=== PATIENT | male | born 1950 | race Caucasian/White ===

== ENCOUNTER 2024-01-23 04:08 | Inpatient (IN) | payer OTHER ==
[~2024-01-23] VITALS: Ht 177.8 cm; Wt 284.9 kg
[2024-01-23] VITALS (11 sets, daily range): BP systolic 119–178; BP diastolic 60–97; PULSE 78–99; RESP 18–22; TEMP 98–98.7; O2SAT 85–96
[2024-01-23] MEDS: FUROSEMIDE 40 MG/4 ML VIAL IV ONE (05:09)
[2024-01-23 05:46] LABS: Basophils # (auto) 0.1 10 ^3/uL (0-0.2); Basophils % (auto) 0.6 % (0.0-2.0); Eosinophils # (auto) 0 10 ^3/uL (0-0.8); Eosinophils % (auto) 0.3 % (0.0-7.0); Hematocrit 44.1 % (41.0-53.0); Hemoglobin 14.7 g/dL (13.5-17.5); Lymphocytes # (auto) 0.7 10 ^3/uL (0.4-5.4); Lymphocytes % (auto) 6.9 % (10.0-50.0); Mean Corpuscular Hemoglobin 27.9 pg (28.0-32.0); Mean Corpuscular Hgb Conc. 33.3 g/dL (32.0-36.0); Mean Corpuscular Volume 83.8 fL (80.0-100.0); Monocytes # (auto) 0.7 10 ^3/uL (0-1.3); Monocytes % (auto) 6.3 % (0.0-12.0); Neutrophils % (auto) 85.9 % (37.0-80.0); Nucleated Red Blood Cells % 0.2 %; Platelet Count (auto) 295 10^3/uL (140-450); Red Blood Cells 5.27 10^6/uL (4.5-5.90); Red Cell Distribution Width 16.5 % (11.8-14.3); White Blood Cell 10.5 10^3/uL (4.4-10.8)
[2024-01-23 05:56] LABS: Chloride 107 mmol/L (98-107); Potassium 4.3 mmol/L (3.5-5.1); Sodium 138 mmol/L (136-145)
[2024-01-23 05:57] LABS: Anion Gap 5 (5-15); Calcium 9.7 mg/dL (8.7-10.4); Carbon Dioxide 26 mmol/L (20-30)
[2024-01-23 06:02] LABS: BUN/Creatinine Ratio 12.9 (10.0-20.0); Blood Urea Nitrogen 16 mg/dL (9-23); Glucose 212 mg/dL (74-106)
[2024-01-23 09:32] LABS: Base Excess 0.3 mmol/L (-2.0-3.0)
[2024-01-23] MEDS ORDERED: NITROGLYCERIN 0.4 MG SL TAB SL PRN (10:30)
[2024-01-23] MEDS: AZITHROMYCIN 500MG/ 250ML 250 ML IV ONE (10:30)
[2024-01-23] MEDS ORDERED: DEXTROSE (50%) 50ML SYRG IV PRN (10:30)
[2024-01-23] MEDS: cefTRIAXone 1GM/50ML D5W 50 ML IV ONE (10:30)
[2024-01-23] MEDS ORDERED: FUROSEMIDE 20 MG/2 ML VIAL IV SCH (11:15)
[2024-01-23] MEDS: ENOXAPARIN SOD 150 MG/1 ML SYRINGE SC SCH (11:33)
[2024-01-23 11:36] LABS: INR 1.03 (0.9-1.15); Prothrombin Time 10.9 sec (9.3-11.8)
[2024-01-23] MEDS: ACCU-CHEK COMFORT CURVE STRIP VI SCH (11:38)
[2024-01-23] MEDS: InsuLIN REG 1unit/0.01ml Soln (100units/ml) SC SCH ×2 (11:38→21:27)
[2024-01-23] MEDS: ENOXAPARIN SOD 40 MG/0.4 ML SYRINGE SC ONE (14:28)
[2024-01-23] MEDS: hydrALAZINE HCL 20 MG/ML VL IV ONE (14:29)
[2024-01-23] MEDS: FUROSEMIDE 20 MG/2 ML VIAL IV SCH (18:34)
[2024-01-23] MEDS ORDERED: ALBUAER3 IN (19:11)
[2024-01-23] MEDS: METOPROLOL TARTRATE 25 MG TAB PO SCH (21:29)
[2024-01-23] MEDS: ATORVASTATIN 20 MG TAB PO SCH (21:29)
[2024-01-24] VITALS (10 sets, daily range): BP systolic 140–170; BP diastolic 58–80; PULSE 70–115; RESP 19–21; TEMP 97.7–98.8; O2SAT 90–97
[2024-01-24 06:31] LABS: Basophils # (auto) 0 10 ^3/uL (0-0.2); Basophils % (auto) 0.5 % (0.0-2.0); Eosinophils # (auto) 0.1 10 ^3/uL (0-0.8); Eosinophils % (auto) 1.6 % (0.0-7.0); Hematocrit 43.2 % (41.0-53.0); Hemoglobin 14.2 g/dL (13.5-17.5); Lymphocytes # (auto) 0.8 10 ^3/uL (0.4-5.4); Lymphocytes % (auto) 9.4 % (10.0-50.0); Mean Corpuscular Hemoglobin 27.3 pg (28.0-32.0); Mean Corpuscular Hgb Conc. 32.9 g/dL (32.0-36.0); Mean Corpuscular Volume 83.1 fL (80.0-100.0); Monocytes # (auto) 0.6 10 ^3/uL (0-1.3); Monocytes % (auto) 7.6 % (0.0-12.0); Neutrophils # (auto) 6.5 10 ^3/uL (1.6-8.6); Neutrophils % (auto) 80.9 % (37.0-80.0); Nucleated Red Blood Cells % 0.2 %; Platelet Count (auto) 293 10^3/uL (140-450); Red Cell Distribution Width 16.5 % (11.8-14.3)
[2024-01-24 06:49] LABS: Alkaline Phosphatase 90 U/L (46-116); Anion Gap 6 (5-15); Aspartate Aminotransferase 10 U/L (13-40); BUN/Creatinine Ratio 13.8 (10.0-20.0); Blood Urea Nitrogen 19 mg/dL (9-23); Calcium 9.7 mg/dL (8.7-10.4); Carbon Dioxide 29 mmol/L (20-30); Chloride 105 mmol/L (98-107); Glucose 144 mg/dL (74-106); LDL Cholesterol 69 mg/dL (< 100); Potassium 4.1 mmol/L (3.5-5.1); Sodium 140 mmol/L (136-145); Triglycerides 158 mg/dL (< 150)
[2024-01-24 06:50] LABS: Albumin 3.8 g/dL (3.2-4.8); Bilirubin, Total 0.9 mg/dL (0.2-1.0); Cholesterol 127 mg/dL (< 200); HDL Cholesterol 30 mg/dL (40-59); Total Protein 6.7 g/dL (5.7-8.2)
[2024-01-24] MEDS ORDERED: LIRA18IN2 SUBCUT (06:56)
[2024-01-24] MEDS ORDERED: FINA5TAB4 PO (06:56)
[2024-01-24] MEDS ORDERED: FLUT0.05 NAS (06:56)
[2024-01-24] MEDS ORDERED: PIO30T GT (06:56)
[2024-01-24] MEDS ORDERED: FENO145T27 OR (06:56)
[2024-01-24] MEDS ORDERED: AMLO1TAB22 PO (06:56)
[2024-01-24] MEDS ORDERED: LOSA-534 PO (06:56)
[2024-01-24] MEDS ORDERED: ATEN50TA PO (06:56)
[2024-01-24] MEDS ORDERED: METF-370 PO (06:56)
[2024-01-24] MEDS ORDERED: TAMS0.4C39 PO (06:56)
[2024-01-24] MEDS ORDERED: FAMO-12 PO (06:56)
[2024-01-24] MEDS ORDERED: TRIA0.5C TOP (06:56)
[2024-01-24] MEDS ORDERED: ATOR20TA50 PO (06:56)
[2024-01-24] MEDS ORDERED: TRAM50TA2 PO (06:56)
[2024-01-24 06:59] LABS: Alanine Aminotransferase < 9 U/L (7-40)
[2024-01-24] MEDS: LISINOPRIL 20 MG TAB PO SCH (08:35)
[2024-01-24] MEDS: cefTRIAXone 1GM/50ML D5W 50 ML IV SCH (08:36)
[2024-01-24] MEDS: hydrALAZINE HCL 20 MG/ML VL IV PRN (08:36)
[2024-01-24] MEDS: ENOXAPARIN SOD 40 MG/0.4 ML SYRINGE SC SCH ×2 (08:48→21:12)
[2024-01-24] MEDS: AZITHROMYCIN 500MG/ 250ML 250 ML IV SCH (10:28)
[2024-01-24] MEDS: EMPAGLIFLOZIN 10 MG TAB PO SCH (10:28)
[2024-01-24] MEDS ORDERED: TAMSULOSIN HYDROCHLORIDE 0.4 MG CAP PO ONE (10:45)
[2024-01-24] MEDS ORDERED: LISINOPRIL 20 MG TAB PO ONE (11:15)
[2024-01-24] MEDS: FINASTERIDE 5 MG TAB PO ONE (11:43)
[2024-01-24] MEDS: TAMSULOSIN HYDROCHLORIDE 0.4 MG CAP PO SCH (17:49)
[2024-01-24] MEDS: METOPROLOL TARTRATE 25 MG TAB PO SCH (21:11)
[2024-01-24] MEDS ORDERED: DEXTROSE (50%) 50ML SYRG IV PRN (21:15)
[2024-01-24] MEDS: ENOXAPARIN SOD 30 MG/0.3 ML SYRINGE SC SCH (22:00)
[2024-01-24] MEDS: InsuLIN REG 1unit/0.01ml Soln (100units/ml) SC SCH (22:52)
[2024-01-24] MEDS: ACCU-CHEK COMFORT CURVE STRIP VI SCH (22:53)
[2024-01-25] VITALS (8 sets, daily range): BP systolic 124–151; BP diastolic 55–77; PULSE 77–97; RESP 18–24; TEMP 98.3–98.9; O2SAT 91–95
[2024-01-25 06:13] LABS: Basophils # (auto) 0 10 ^3/uL (0-0.2); Basophils % (auto) 0.3 % (0.0-2.0); Eosinophils # (auto) 0 10 ^3/uL (0-0.8); Eosinophils % (auto) 0.2 % (0.0-7.0); Hematocrit 43.9 % (41.0-53.0); Hemoglobin 14.4 g/dL (13.5-17.5); Lymphocytes # (auto) 0.9 10 ^3/uL (0.4-5.4); Lymphocytes % (auto) 7.3 % (10.0-50.0); Mean Corpuscular Hemoglobin 27.2 pg (28.0-32.0); Mean Corpuscular Hgb Conc. 32.7 g/dL (32.0-36.0); Monocytes # (auto) 1.1 10 ^3/uL (0-1.3); Monocytes % (auto) 8.6 % (0.0-12.0); Neutrophils # (auto) 10.3 10 ^3/uL (1.6-8.6); Neutrophils % (auto) 83.6 % (37.0-80.0); Platelet Count (auto) 323 10^3/uL (140-450); Red Blood Cells 5.29 10^6/uL (4.5-5.90); Red Cell Distribution Width 16.8 % (11.8-14.3); White Blood Cell 12.3 10^3/uL (4.4-10.8)
[2024-01-25 06:24] LABS: Anion Gap 10 (5-15); Carbon Dioxide 27 mmol/L (20-30); Chloride 104 mmol/L (98-107); Potassium 3.5 mmol/L (3.5-5.1); Sodium 141 mmol/L (136-145)
[2024-01-25 06:25] LABS: Calcium 9.8 mg/dL (8.7-10.4)
[2024-01-25 06:30] LABS: BUN/Creatinine Ratio 15.5 (10.0-20.0); Blood Urea Nitrogen 25 mg/dL (9-23); Glucose 134 mg/dL (74-106); Magnesium 2.1 mg/dL (1.6-2.6)
[2024-01-25] MEDS: LISINOPRIL 20 MG TAB PO SCH (09:13)
[2024-01-25] MEDS: FINASTERIDE 5 MG TAB PO SCH (09:13)
[2024-01-25 14:28] LABS: Urine Bacteria FEW /hpf (None Seen); Urine Blood 3+ /uL (Negative); Urine Budding Yeast MANY /hpf (None Seen); Urine Clarity Turbid (Clear); Urine Color Brown (Yellow); Urine Mucus FEW (None Seen); Urine Protein, UAD 2+ (Negative); Urine Urobilinogen Normal (Negative); Urine WBC 40 /hpf (0 - 3); Urine pH 5.5 (5.0-9.0)
[2024-01-25] MEDS: metOLazone 5 MG TAB PO ONE (17:02)
[2024-01-25] MEDS: TAMSULOSIN HYDROCHLORIDE 0.4 MG CAP PO SCH (18:03)
[2024-01-26] VITALS (8 sets, daily range): BP systolic 100–130; BP diastolic 50–63; PULSE 17–98; RESP 18–20; TEMP 97.8–98.5; O2SAT 92–97
[2024-01-26 06:09] LABS: Basophils # (auto) 0 10 ^3/uL (0-0.2); Basophils % (auto) 0.4 % (0.0-2.0); Eosinophils # (auto) 0.3 10 ^3/uL (0-0.8); Eosinophils % (auto) 3.1 % (0.0-7.0); Hematocrit 43.1 % (41.0-53.0); Hemoglobin 14.3 g/dL (13.5-17.5); Lymphocytes # (auto) 0.9 10 ^3/uL (0.4-5.4); Lymphocytes % (auto) 8.8 % (10.0-50.0); Mean Corpuscular Hemoglobin 27.6 pg (28.0-32.0); Mean Corpuscular Hgb Conc. 33.1 g/dL (32.0-36.0); Mean Corpuscular Volume 83.2 fL (80.0-100.0); Monocytes % (auto) 8.9 % (0.0-12.0); Neutrophils # (auto) 8.4 10 ^3/uL (1.6-8.6); Neutrophils % (auto) 78.8 % (37.0-80.0); Platelet Count (auto) 314 10^3/uL (140-450); Red Blood Cells 5.18 10^6/uL (4.5-5.90); Red Cell Distribution Width 16.9 % (11.8-14.3); White Blood Cell 10.7 10^3/uL (4.4-10.8)
[2024-01-26 06:21] LABS: Anion Gap 10 (5-15); Carbon Dioxide 30 mmol/L (20-30); Chloride 102 mmol/L (98-107); Potassium 3.1 mmol/L (3.5-5.1); Sodium 142 mmol/L (136-145)
[2024-01-26 06:23] LABS: Calcium 9.4 mg/dL (8.7-10.4)
[2024-01-26 06:28] LABS: Blood Urea Nitrogen 27 mg/dL (9-23); Glucose 133 mg/dL (74-106)
[2024-01-26] MEDS: metOLazone 5 MG TAB PO ONE (16:01)
[2024-01-26] MEDS: POTASSIUM CHL 20 Meq TABLET PO ONE (18:28)
[2024-01-27 01:00] VITALS: BP 143/72; PULSE 84; RESP 17; TEMP 97.7; O2SAT 95
[2024-01-27 05:02] VITALS: BP 111/59; PULSE 84; RESP 17; TEMP 97.7; O2SAT 91
[2024-01-27 08:00] VITALS: PULSE 91; O2SAT 92
[2024-01-27 08:36] LABS: Anion Gap 6 (5-15); Calcium 10.2 mg/dL (8.7-10.4); Carbon Dioxide 35 mmol/L (20-30); Chloride 99 mmol/L (98-107); Sodium 140 mmol/L (136-145)
[2024-01-27 08:42] LABS: BUN/Creatinine Ratio 20.3 (10.0-20.0); Glucose 137 mg/dL (74-106)
[2024-01-27 08:43] LABS: Blood Urea Nitrogen 42 mg/dL (9-23); Magnesium 2.6 mg/dL (1.6-2.6)
[2024-01-27 09:00] VITALS: BP 131/70; PULSE 99; RESP 18; TEMP 98.1; O2SAT 96
[2024-01-27] MEDS: metOLazone 5 MG TAB PO ONE (10:24)
[2024-01-27 13:22] LABS: Base Excess 6.4 mmol/L (-2.0-3.0)
[2024-01-27 13:30] VITALS: BP 117/55; PULSE 96; RESP 20; TEMP 98.1; O2SAT 93
[2024-01-27] MEDS ORDERED: CEPH250C PO (14:58)
[2024-01-27] MEDS ORDERED: FURO40TA4 PO (14:58)
[2024-01-27] MEDS ORDERED: TAMS0.4C39 PO (14:58)
[2024-01-27] MEDS ORDERED: POTA-36 PO (14:59)
[2024-01-27] MEDS: ACETAMINOPHEN 325 MG TAB PO ONE (15:25)
[2024-01-27 15:30] VITALS: BP 117/55; PULSE 96
[2024-01-28 13:07] LABS: PSA Free 0.5 ng/mL; Prostate Specific Antigen 4.2 ng/mL (0.0-4.0)
== END 2024-01-27 18:05 | disposition home or self-care (01) | DRG 177 ==
LOC: ER 04:08 → TELE 10:31 → TELE-WESTW 12:00
PROVIDERS: ADMIT Internal Medicine; ATTEND Internal Medicine
PROC: 5A09357 Assistance with Respiratory Ventilation, Less than 24 Consecutive Hours, Continuous Positive Airway Pressure (ICD-10-PCS; principal; 2024-01-23)
DX: J15.69 Pneumonia due to other Gram-negative bacteria (principal); I50.31 Acute diastolic (congestive) heart failure; J96.01 Acute respiratory failure with hypoxia; R65.11 Systemic inflammatory response syndrome (SIRS) of non-infectious origin with acute organ dysfunction; N17.0 Acute kidney failure with tubular necrosis; I13.0 Hypertensive heart and chronic kidney disease with heart failure and stage 1 through stage 4 chronic kidney disease, or unspecified chronic kidney disease; R18.8 Other ascites; J15.9 Unspecified bacterial pneumonia; E78.5 Hyperlipidemia, unspecified; E66.01 Morbid (severe) obesity due to excess calories; I16.0 Hypertensive urgency; G47.33 Obstructive sleep apnea (adult) (pediatric); N40.1 Benign prostatic hyperplasia with lower urinary tract symptoms; R33.8 Other retention of urine; R31.0 Gross hematuria; E11.22 Type 2 diabetes mellitus with diabetic chronic kidney disease; N18.9 Chronic kidney disease, unspecified; I27.20 Pulmonary hypertension, unspecified; Z79.4 Long term (current) use of insulin; Z68.39 Body mass index [BMI] 39.0-39.9, adult
CPT/HCPCS: 36415; 36600; 71045; 76705; 76775; 80048; 80053; 80061; 81001; 82805; 82962; 83036; 83735; 83880; 84154; 84443; 84484; 85025; 85610; 87086; 87088; 87186; 93005; 93306; 94660; 96365; 96368; 96372; 96375; 99291; G0378; J1815